=== PATIENT | male | born 1995 | race American Indian/Alaskan Native ===

== ENCOUNTER 2019-10-12 21:04 | Emergency (ER) | payer OTHER ==
[~2019-10-12] VITALS: Ht 190.5 cm; Wt 122.5 kg
--- OUTSIDE RECORDS SUMMARY | ~2019-10-12 | XMS | Clinical Summary ---
Demographics + + + | Address | [address] | | | [place] [address] | + + + | Home Phone | | + + + | Preferred Language | Unknown | + + + | Marital Status | Single | + + + | Yarsani Affiliation | Unknown | + + + | Race | or | + + + | Ethnic Group | Not or | + + + Author + + + | Organization | Unknown | + + + | Address | Unknown | + + + | Phone | Unavailable | + + + Support + + + + + | Name | Relationship | Address | Phone | + + + + + | Elena Monge | CINTIA | [place] | | + + + + + Care Team Providers + +------+ + | Care Roller Skate Repairer Name | Role | Phone | + +------+ + PCP | Unavailable | + +------+ + Source Comments YANI is fully live on both [facility] and [facility] InPatient.[facility] Allergies Not on File Medications Not on file Active Problems Not on file Social History + +-------+ +--------+------+ | Tobacco Use | Types | Packs/Day | Years | Date | | | | | Used | | + +-------+ +--------+------+ | Never Assessed | | | | | + +-------+ +--------+------+ + + + | Sex Assigned at | Date Recorded | | | | + + + | Not on file | | + + + + + + + | Job Start Date | Occupation | Industry | + + + + | Not on file | Not on file | Not on file | + + + + + + + + | Travel History | Travel Start | Travel End | + + + + + + | No recent travel history available. | + + Last Filed Vital Signs Not on file Plan of Treatment + + + + + | Health Maintenance | Due Date | Last Done | Comments | + + + + + | Influenza (Flu) | | | | | vaccination (#1) | 9 | | | + + + + + | Pneumococcal | Aged Out | | No longer eligible | | vaccination | | | based on patient's | | | | | age to complete this | | | | | topic | + + + + + Results Not on filefrom Last 3 Months"
--- OUTSIDE RECORDS SUMMARY | ~2019-10-12 | XMS | Encounter Summary ---
Demographics + + + | Address | [address] | | | [place] [address] | + + + | Home Phone | | + + + | Preferred Language | Unknown | + + + | Marital Status | Single | + + + | Sikhism Affiliation | Unknown | + + + | Race | or | + + + | Ethnic Group | Not or | + + + Author + + + | Author | [facility] [facility] | + + + | Organization | [facility] | + + + | Address | Unknown | + + + | Phone | Unavailable | + + + Support + + + + + | Name | Relationship | Address | Phone | + + + + + | Elena Monge | ECON | [place], [place] | | + + + + + Care Team Providers + +------+ + | Care Pick Remover Name | Role | Phone | + +------+ + PCP | Unavailable | + +------+ + Encounter Details +--------+ + + + + | Date | Type | Department | Care Team | Description | +--------+ + + + + | 02/17/ | Office | [facility] | Note, Outpatient | Progress Note | | 1998 | Visit-Trans | MEDICINE | Clinic | | | | cribed | | | | +--------+ + + + + Social History + +-------+ +--------+------+ | Tobacco [...] recent travel history available. | + + documented as of this encounter Progress Notes Interface, Histopathologist In - 04/25/2006 1:14 AM PSTCLINIC DATE: 02/17/1999 PED[facility]ATRIC GASTROENTEROLOGY CLINIC PROBLEM: Constipation. MEDICATIONS: None. ALLERGIES: None. SUBJECTIVE: Vincenzo is a 4-plbi-2-month-old boy who has had constipation since infancy. His history was obtained from history from mother and from records that were send from the [facility] Vincenzo was a 7-pound . Apparently, he probably passed meconium at the end of the first day of life. He was breast fed. Mother said her milk did not come in well, but he did have bowel movements daily during the time he was breast fed. He was then changed to Enfamil. She recalled by 2-3 months he had problems of very hard bowel movements which were pellet-like and subsequently had blood per rectum. As he got older, he had stomachaches. His mother reports that after a while, by 7-8 months of age, she had given him an enema because he cried so hard, having a bowel movement. She then had subsequently had given an enema once every 4-5 months for pain. For a period of time, he had bowel movements only every 3-4 days, but in general he has continued to stool every day. His pain with bowel movements became worse and worse. He has tried on multiple dietary measures including prune juice which did not influence his consistency. Juices and milk was discontinued. He had a liquid laxity of about three years ago which did not help. He has never had a rectal prolapse. Currently, he has stools everyday but despite this about every two months, he screams in such pain that he has been digitally disimpacted by his mother. His grandmother who is an RN taught her how to do this, and this has been done 7 or 8 times. When it is time for disimpaction, he cries and says his bowel movement is "too big." The last time this was done was three weeks ago. When he has these episodes, his mother reports that he sometimes will have lower abdominal pain and a fever of 102-103 degrees. He was potty-trained at [age] years and has no enuresis day or night and no encopresis. PAST MEDICAL HISTORY: He had a frequent otitis in the first year. FAMILY HISTORY: An aunt has constipation problems and a great grandmother had mild constipation. His parents are well, and he has one sibling. OBJECTIVE: GENERAL: He is a well-appearing, cooperative boy. VITAL SIGNS: Weight is 17.3 kg, height 101 cm. HEENT: Normocephalic. Eyes, nose, and mouth within normal limits. NECK: Supple, no thyroid palpable, no adenopathy. CHEST: Clear to auscultation. CARDIAC: Regular rate and rhythm, no murmur. ABDOMEN: Soft, no masses, distention, or organomegaly. RECTAL: Normally positioned sphincter, normal sphincter tones, stool palpable immediately in vault involves small pellets. No fissure is seen. BACK: LS spine grossly normal. NEUROLOGIC: Deep tendon reflexes 0-1+, very difficult to elicit. PREVIOUS LABORATORY EVALUATION: This has included a KUB on October 31, 1998, revealed unremarkable bowel gas and nonspecific pattern. He has had hematocrits done which were unremarkable. ASSESSMENT: History of chronic constipation. He is not unable to go but has painful bowel movements unlike a child with Hirschsprung who is unable to pass stool whether it is liquid or solid. He was not actually dependant on rectal stimulation but has digital disimpaction because of pain every couple of months, and this is a recent development. I think this is most likely functional. I am concerned about the history of fevers that have recurred when he is more constipated. This should not be caused by impaction. Urinary tract infections can occur on to this situation. RECOMMENDATIONS 1. With recurrent fever, check a urine culture. 2. To be completely un-prepped barium enema to be done in [place], no distention of the balloon on the Collins catheter should be done. He should have no digital exam, disimpactions, or enema for five days prior to this. 3. I will treat him empirically with Sorbitol 70% three tablespoons p.o. q.d., a recipe was given for a sorbitol cool aid. If he has a very hard pain for bowel movement, they are to give a teaspoon of Senokot in lieu of digital disimpaction. I will not make a followup appointment but would be happy to see him back if he is not doing well. Geneva Rahman M.D. [facility] / [id number] / [id number] / [id number] / cc: Mala Rudolph [facility] [address] [place] [address] [id number] signed by Interface, Histopathologist In at 04/25/2006 1:14 AM PSTdocume nted in this encounter Plan of Treatment Not on filedocumented as of this encounter Visit Diagnoses Not on filedocumented in this encounter
--- OUTSIDE RECORDS SUMMARY | ~2019-10-12 | XMS | Clinical Summary ---
Demographics + + + | Address | [address] | | | [place] [address] | + + + | Home Phone | | + + + | Preferred Language | Unknown | + + + | Marital Status | Single | + + + | Hinduism Affiliation | Unknown | + + + [...] Team Providers + +------+ + | Care Innersole Fitter Name | Role | Phone | + +------+ + PCP | Unavailable | + +------+ + Source Comments YANI is fully live on both [facility] and [facility] InPatient.[facility] Allergies Not on File Medications Not on [...]
--- OUTSIDE RECORDS SUMMARY | ~2019-10-12 | XMS | Encounter Summary ---
Demographics + + + | Address | [address] | | | [place] [address] | + + + | Home Phone | | + + + | Preferred Language | Unknown | + + + | Marital Status | Single | + + + | Sabianist Affiliation | Unknown | + + + | Race | or | + + + | Ethnic Group | Not or | + + + Author + + + | Author | [facility] | + + + | Organization | [facility] [employer] [facility] | + + + | Address [...] Team Providers + +------+ + | Care Certified Medication Technician Name | Role | Phone | + [...] as of this encounter Progress Notes Interface, Chief Of Production In - 04/25/2006 1:14 AM PSTCLINIC DATE: 02/17/1999 PEDIATRIC GASTROENTEROLOGY CLINIC PROBLEM: Constipation. MEDICATIONS: None. ALLERGIES: None. SUBJECTIVE: Vincenzo is a 2-tpap-2-month-old boy who has had constipation since infancy. His history was obtained from history from mother and from records that were send from the [facility]. Vincenzo was a 7-pound . Apparently, he [...] un-prepped barium enema to be done in [place], no distention of the balloon on the [...] is not doing well. Geneva Rahman M.D. [facility] / [id number] / [id number] / [id number] / cc: Mala Rudolph [facility] [address] [place] [address] [id number] signed by Interface, Chief Of Production In at 04/25/2006 1:14 AM PSTdocume nted in this encounter Plan of Treatment Not on filedocumented as of this encounter Visit Diagnoses Not on filedocumented in this encounter
[~2019-10-12 21:04] MED LIST: NAPROXEN500 MG PO
[2019-10-12] MEDS ORDERED: FLAGYL500 MG PO (21:44)
[2019-10-12] MEDS ORDERED: CIPRO500 MG PO (21:44)
--- NOTE | 2019-10-13 10:33 | CONS ---
[facility] [address], [place] [address] Signed DATE OF CONSULTATION: 10/12/2019 TIME: 9:40 p.m. REQUESTING PHYSICIAN: Oneil Meyers MD. PROBLEM: Perianal drainage of bloody fluid, question of fissure versus draining perirectal abscess. HISTORY OF PRESENT ILLNESS: This 24-year-old obese [place] man, works for [employer] and is a part-time college student. He has had increasing pain in the perianal area over the past few days and swelling in a large marble like configuration, ultimately resulting in spontaneous bleeding. He had a fair amount of drainage of mucopurulent material and subsequently blood. He presented to the emergency room, was evaluated by Dr. Meyers. He was found to have a posterior midline defect (hole) with egress of inflammatory fluid including some blood. Concern was maintained that this may represent a spontaneously draining perirectal abscess versus fissure or other similar problem. The patient has no diabetes and generally, no medical problems other than obesity. PHYSICAL EXAMINATION: GENERAL: This is a nontoxic appearing [place] male with multiple tattoos. Alert, oriented and articulate. CHEST: Shows normal respiratory excursion. Pulses regular. GENITOURINARY: In the lateral position left side down, examination was undertaken of the perianal area. There is a mucopurulent discharge in the surrounding area and an obvious draining site in the anterior near midline area. Palpation on the right side demonstrates induration, which is likely the origin of the necessitation as a perirectal abscess, shows no sign of generalized cellulitis of the perineum. The right side is normal. ASSESSMENT: The patient indeed has had spontaneous drainage of a perirectal abscess. I discussed the pathophysiology of this problem with the patient. Two options of management would include sitz baths at home to allow for continued drainage as well as consideration for antibiotic therapy, Cipro and Flagyl. I discussed this with Dr. Meyers. It is probably reasonable, but does not need to be prolonged 3 days or so at most would be adequate. The fate of this lesion is one of continued drainage until spontaneous closure or in 1/10 cases (10%) persistence of a fistula in ano. The patient has no Electronically Signed By: ADALBERTO RIOS MD 10/13/19 1033 PATIENT NAME: BA LEONE CONSULTATION DATE OF : [birth year] REPORT #: [id number] PHYSICIAN: ADALBERTO RIOS MD PCP: [facility] REPORT IS CONFIDENTIAL AND NOT TO BE RELEASED WITHOUT AUTHORIZATION [facility] [address], [place] [address] Signed symptoms to suggest inflammatory bowel disease, Crohn disease, and so forth and therefore, spontaneous healing may recur after adequate drainage. An alternative approach would be admission to the hospital, fluids, exam under anesthesia, and further incision and drainage and placement of yellow vessel loop seton. He would prefer the former if possible. That is understandable. He will call my office on Wednesday (today is ) and make appointment for 10 days or so following this episode. If he should have recurrent collection of purulence requiring drainage, we will certainly see him sooner and arrange for incision, drainage and so. I have reviewed this with Dr. Meyers, who understands this recommendation as well. Adalberto Rios MD JM/MODL /[id number] cc: [facility] Oneil Meyers MD Copies: [facility] ONEIL MEYERS MD ~ Electronically Signed By: ADALBERTO RIOS MD 10/13/19 1033 PATIENT NAME: BA LEONE CONSULTATION DATE OF : [birth year] REPORT #: [id number] PHYSICIAN: ADALBERTO RIOS MD PCP: [facility] REPORT IS CONFIDENTIAL AND NOT TO BE RELEASED WITHOUT AUTHORIZATION
== END 2019-10-12 21:58 | disposition home or self-care (01) ==
LOC: ED 21:04
DX: K61.1 Rectal abscess (principal); Z88.1 Allergy status to other antibiotic agents
CPT/HCPCS: 99283